=== PATIENT | male | born 1980 | race Caucasian/White ===

== ENCOUNTER 2016-08-01 19:54 | Emergency (ER) | payer SELFPAY ==
[~2016-08-01] VITALS: Ht 177.8 cm; Wt 88.0 kg
[2016-08-01 19:59] VITALS: BP 149/66; PULSE 87; RESP 18; TEMP 97.5; O2SAT 100
--- NOTE | 2016-08-01 20:11 | PD ---
HPI Chief Complaint: Laceration/Skin Injury Time Seen by Provider: 20:07 Travel History International Travel<30 days: No Contact w/Intl Traveler<30days: No Traveled to known affect area: No History of Present Illness HPI 35-year-old male presents to the emergency department for evaluation of laceration to left forearm that occurred about 30 minutes ago. Patient states he was walking and tripped forward cutting his left forearm on a piece of rebar on his trailer. He complains of stinging sensation at the site of the laceration. Denies any weakness, numbness or tingling. Unsure of last tetanus vaccination. No other complaints. [facility] Past Medical History Medical History: Denies Significant Hx Social History Alcohol Use: No Tobacco Use: Yes Substance Use: No Allergies-Medications (Allergen,Severity, Reaction): Coded Allergies: No Known Allergies (Unverified , 08/01/16) Reported Meds & Prescriptions Reported Meds & Active Scripts Active No Active Prescriptions or Reported Medications Review of Systems Except as stated in HPI: all other systems reviewed are Neg Physical Exam Narrative GENERAL: Well-nourished and well-developed pleasant patient in no acute distress who is nontoxic appearing. SKIN: Warm and dry. 2.5 cm linear laceration to the ulnar aspect of left forearm. I am able to obtain a bloodless view of the base of the laceration and there is no foreign body identified. HEAD: Normocephalic and atraumatic. EYES: No injection, drainage, or hyphema noted. PERRLA. EOMI. ENT: No nasal drainage noted. Oropharynx is clear. NECK: Supple and the trachea is midline. CARDIOVASCULAR: Regular rate and rhythm. RESPIRATORY: Breath sounds are equal bilaterally with no accessory muscle use, wheezing, rhonchi, or crackles. MUSCULOSKELETAL: No obvious deformities, swelling, cyanosis, or ecchymosis is present throughout the upper and lower extremities. Patient has full range of motion without any signs of neurovascular compromise. NEUROLOGICAL: Awake, alert, and oriented. Normal speech and gait. Cranial nerves are grossly intact. Data Data Last Documented VS Vital Signs Date Time Temp Pulse Resp B/P Pulse Ox O2 Delivery O2 Flow Rate FiO2 08/01/16 19:59 97.5 87 18 149/66 100 Orders Lidocai-Epi 1%-1:100,000 Inj (Xylocaine- (08/01/16 20:15) Tetanus/Diphtheria Tox Adult (Tetanus/Di (08/01/16 20:15) MDM Medical Decision Making Medical Screen Exam Complete: Yes Emergency Medical Condition: Yes Differential Diagnosis Laceration versus superficial versus deep versus abrasion Narrative Course 35-year-old male presents to the emergency department for evaluation of laceration to left forearm. Patient is afebrile, vital signs are stable. Laceration repairs performed, see procedure narrative. Discussed proper wound care techniques with the patient. Patient verbalizes understanding and agreement with treatment plan. Procedures Procedure Narrative LACERATION LOCATION: left forearm LENGTH: 3 cm NUMBER OF STITCHES/BALDEV: 7 sutures REPAIR: The area of the laceration was prepped with Betadine and sterilely draped. The laceration was infiltrated with 1% lidocaine with epinephrine. The wound was copiously irrigated and explored without evidence of foreign body , tendon injury or neurovascular injury. The wound was closed using 4. 0 Ethilon. This was a single layer repair. Antibiotic ointment and a sterile dressing was applied. The patient was advised to keep the dressing clean and dry. Patient tolerated the procedure well. Diagnosis Primary Impression: Laceration of left forearm Qualified Code: S51.812A - Laceration of left forearm, initial encounter Patient Instructions: General Instructions, Laceration (ED) Additional Instructions: Wash gently with soap and water. Apply topical antibiotic ointment twice daily. Have sutures removed in 7 days. Follow-up with your Primary Care Physician. Return to the ED for any acute worsening of symptoms. Med/Other Pt SpecificInfo: No Change to Meds Scripts No Active Prescriptions or Reported Meds Disposition: 01 DISCHARGE HOME Condition: Stable Amberly Barger August 01, 2016 20:11
[2016-08-01] MEDS ORDERED: TETANUS/DIPHTHERIA TOXOID ADULT 0.5 ML VIAL IM ONE (20:15)
[2016-08-01] MEDS ORDERED: LIDOCAINE 1%/EPINEPHrine 1:100,000 SOLN 20 ML VIAL INFIL ONE (20:15)
== END 2016-08-01 20:42 | disposition home or self-care (01) ==
LOC: PHEFT 19:54
DX: S51.812A Laceration without foreign body of left forearm, initial encounter (principal); Z23 Encounter for immunization; W01.198A Fall on same level from slipping, tripping and stumbling with subsequent striking against other object, initial encounter
CPT/HCPCS: 12002; 90471; 90714